=== PATIENT | female | born 1970 | race Caucasian/White ===

== ENCOUNTER 2017-05-13 19:34 | Emergency (ER) | payer SELFPAY ==
[~2017-05-13 19:34] MED LIST: COL250 PO; LAC PO; LEVAQUIN LEVA-750 M1 PO; NORCO1 TA2 PO
[2017-05-14 01:46] VITALS: BP 140/77
== END 2017-05-14 01:46 | disposition home or self-care (01) ==
LOC: ED 19:34
DX: R42 Dizziness and giddiness (principal); R11.2 Nausea with vomiting, unspecified; Z90.49 Acquired absence of other specified parts of digestive tract
CPT/HCPCS: J8597